=== PATIENT | male | born 1990 | race Hispanic/Latino ===

== ENCOUNTER 2025-01-20 17:07 | Emergency (ER) | payer SELFPAY ==
--- NOTE | 2025-01-20 17:41 | ER ---
Nurse's Notes [facility] Name: Nick Durbin Jr Age: 35 yrs Sex: Male : 1990 Arrival Date: 01/20/2025 Time: 17:07 Bed DX3 Private MD: Diagnosis: Toxic effect of chlorine gas, accidental (unintentional), initial encounter;Headache Presentation: 01/20 17:39 Chief complaint: Patient states: Pt reports sinus headache and pressure after chlorine ss gas exposure this morning around 0900 during a reported leak. Denies LOC, dizziness, N/V. Coronavirus screen: Vaccine status: Patient reports being unvaccinated. Client denies travel out of the [place] in the last 14 days. Ebola Screen: Patient negative for fever greater than or equal to 101.5 degrees Fahrenheit, and additional compatible Ebola Virus Disease symptoms Patient denies exposure to infectious person. Patient denies travel to an Ebola-affected area in the 21 days before illness onset. Initial Sepsis Screen: Does the patient meet any 2 criteria? No. Patient's initial sepsis screen is negative. Does the patient have a suspected source of infection? No. Patient's initial sepsis screen is negative. Risk Assessment: Do you want to hurt yourself or someone else? Patient reports no desire to harm self or others. Onset of symptoms was January 20, 2025 at 09:00. 17:39 Method Of Arrival: Ambulatory ss 17:39 Acuity: MANDIE 4 ss Triage Assessment: 17:40 General: Appears in no apparent distress. comfortable, Behavior is calm, cooperative. ss Pain: Complains of pain in forehead Pain does not radiate. Pain currently is 5 out of 10 on a pain scale. Neuro: No deficits noted. 17:42 Neuro: Reports headache frontal area. GI: Patient currently denies nausea, vomiting. ss Historical: - Allergies: 17:40 No Known Allergies; ss - Home Meds: 17:40 None [Active]; ss - PMHx: 17:40 None; ss - PSHx: 17:40 None; ss - Immunization history:: Adult Immunizations up to date. - Infectious Disease History:: Denies. - Social history:: Smoking status: Patient denies any tobacco usage or history of. Screenin:41 [facility] ED Fall Risk Assessment (Adult) History of falling in the last 3 months, ss including since admission No falls in past 3 months (0 pts) Confusion or Disorientation No (0 pts) Intoxicated or Sedated No (0 pts) Impaired Gait No (0 pts) Mobility Assist Device Used No (0 pt) Altered Elimination No (0 pt) Score/Fall Risk Level 0 - 2 = Low Risk Oriented to surroundings. Abuse screen: Denies threats or abuse. Denies injuries from another. Nutritional screening: No deficits noted. Tuberculosis screening: No symptoms or risk factors identified. Assessment: 17:41 General: see triage assessment. ss Vital Signs: 17:39 Weight 104.33 kg; Height 5 ft. 8 in. ; Pain 5/10; ss 17:44 BP 119 / 75; Pulse 88; Resp 18; Temp 97.7; Pulse Ox 98% on R/A; bc6 17:39 Body Mass Index 34.97 (104.33 kg, 172.72 cm) ss 17:39 Pain Scale: Adult ss ED Course: 17:10 Patient arrived in ED. mr 17:14 Bertrand Thompson DO is Attending Physician. ms3 17:39 Jeevan Villalobos DO is Referral Physician. ms3 17:40 Triage completed. ss 17:40 Arm band placed on right wrist. ss 17:41 Patient has correct armband on for positive identification. Provided Education on: Plan ss of care. 17:41 No provider procedures requiring assistance completed. Patient did not have IV access ss during this emergency room visit. Administered Medications: No medications were administered Medication: 17:41 VIS not applicable for this client. ss Outcome: 17:40 Discharge ordered by . ms3 17:50 Discharged to home ambulatory, ss 17:50 Condition: stable 17:50 Discharge instructions given to patient, Instructed on discharge instructions, follow up and referral plans. medication usage, Demonstrated understanding of instructions, follow-up care, medications, 17:50 Patient left the ED. ss Signatures: Karlee Huber, Stan Reg mr Yana Nicole, RN RN Bertrand Thompson DO DO ms3 Salome Lewis bc6
--- NOTE | 2025-01-20 17:41 | EDPHYS ---
Physician Documentation [facility] Name: Nick Durbin Jr Age: 35 yrs Sex: Male : 1990 Arrival Date: 01/20/2025 Time: 17:07 Bed DX3 Private MD: ED Physician Bertrand Thompson HPI: 01/20 17:36 This 35 yrs old Male presents to ER via Unassigned with complaints of Chemical ms3 Exposure. 17:36 35-year-old male with no past medical history presents emergency department for frontal ms3 headache after being exposed to chlorine while at work. Patient states his discomfort is a 5/10. Patient states he was in a block close to the chlorine gas release. He states he went indoors and sheltered in place during the release however he could smell the chlorine in the building he was in. He denies shortness of breath, nausea, vomiting.. Historical: - Allergies: 17:40 No Known Allergies; ss - Home Meds: 17:40 None [Active]; ss - PMHx: 17:40 None; ss - PSHx: 17:40 None; ss - Immunization history:: Adult Immunizations up to date. - Infectious Disease History:: Denies. - Social history:: Smoking status: Patient denies any tobacco usage or history of. ROS: 17:36 Constitutional: Negative for fever, and chills. Cardiovascular: Negative for chest ms3 pain, and palpitations. Respiratory: Negative for shortness of breath, cough, wheezing, and pleuritic chest pain, Abdomen/GI: Negative for abdominal pain, nausea, vomiting, diarrhea, and constipation, 17:36 Neuro: Positive for headache, Exam: 17:36 Constitutional: This is a well developed, well nourished patient who is awake, alert, ms3 and in no acute distress. Cardiovascular: Regular rate and rhythm with a normal S1 and S2. No gallops, murmurs, or rubs. Normal PMI, no JVD. No pulse deficits. Respiratory: Lungs have equal breath sounds bilaterally, clear to auscultation and percussion. No rales, rhonchi or wheezes noted. No increased work of breathing, no retractions or nasal flaring. Abdomen/GI: Soft, non-tender, with normal bowel sounds. No distension or tympany. No guarding or rebound. No evidence of tenderness throughout. Skin: Warm, dry with normal turgor. Normal color with no rashes, no lesions, and no evidence of cellulitis. MS/ Extremity: Pulses equal, no cyanosis. Neurovascular intact. Full, normal range of motion. Vital Signs: 17:39 Weight 104.33 kg; Height 5 ft. 8 in. ; Pain 5/10; ss 17:44 BP 119 / 75; Pulse 88; Resp 18; Temp 97.7; Pulse Ox 98% on R/A; bc6 17:39 Body Mass Index 34.97 (104.33 kg, 172.72 cm) ss 17:39 Pain Scale: Adult ss MDM: 17:36 Differential Diagnosis Chlorine gas exposure, headache. Data reviewed: vital signs, ms3 nurses notes, and as a result, I will discharge patient. Counseling: I had a detailed discussion with the patient and/or guardian regarding the historical points, exam findings, and any diagnostic results supporting the discharge/admit diagnosis, the need for outpatient follow up, to return to the emergency department if symptoms worsen or persist or if there are any questions or concerns that arise at home. Special discussion: I discussed with the patient/guardian in detail that at this point there is no indication for admission to the hospital. It is understood, however, that if the symptoms persist or worsen the patient needs to return immediately for re-evaluation. ED course: Discussed physical exam findings with patient. Patient to follow-up with primary care physician in 2 to 3 days. Patient understands agrees with plan. All questions were answered. Return precautions discussed include worsening symptoms, or any other concerns.. 17:40 Medical Screening Exam initiated ms3 Administered Medications: No medications were administered Disposition Summary: 01/20/25 17:40 Discharge Ordered Notes: Location: Home ms3 Condition: Stable ms3 Diagnosis - Toxic effect of chlorine gas, accidental (unintentional), initial encounter ms3 - Headache ms3 Followup: ms3 - With: Jeevan Villalobos DO - When: 2 - 3 days - Reason: Recheck today's complaints Discharge Instructions: - Discharge Summary Sheet ms3 - General Headache Without Cause ms3 - Chemical Inhalation Injury, Adult ms3 Forms: - Work release form ss - Medication Reconciliation Form ms3 - Antibiotic Education ms3 - Prescription Opioid Use ms3 - Patient Portal Instructions ms3 - Leadership Thank You Letter ms3 Signatures: Yana Nicole, SUKUMAR RN ss Bertrand Thompson, DO DO ms3
[2025-01-20 18:01] VITALS: BP 119/75; TEMP 97.7; O2SAT 98
--- OUTSIDE RECORDS SUMMARY | 2025-01-20 21:22 | XMS REPORT | Continuity of Care Document ---
Author Name Unknown Address [address] [place] [address] [address] [place] [address] [facility] Address [address] [facility] [address] [place] [address] Care Team Providers Care Financial Controller Name Role Phone Paola Gregory Primary Care Physician [phone] CRISTINO Attending Clinician Unavailable missael Attending Clinician Unavailable Mindy Mahoney Attending Clinician MINDY JOHN Attending Clinician Unavailable CRISTINO Admitting Clinician Unavailable missael Admitting Clinician Unavailable Payers Payer Name Policy Type Policy Number Effective Date Expirati on Date Source [facility] [id number] 2015 00:00:00 Problems Condition Name Condition Details Condition Category Status Onset Date Resolution Date Last Treatment Date Treating Clinician Comments Source No known active problems No known active problems Disease [facility] Allergies, Adverse Reactions, Alerts Allergy Name Allergy Type Status Severity Reaction(s) Onset Date Inactive Date Treating Clinician Comments Source NO KNOWN ALLERGIE S Drug Class Active [facility] Social History Social Habit Start Date Stop Date Quantity Comments Source Sex Assigned At [facility] Exposure to SARS-CoV-2 (event) Not sure [facility] Smoking Status Start Date Stop Date Source Unknown if ever smoked [facility] Medications Ordered Medication Name Filled Medication Name Start Date Stop Date Current Medication? Ordering Clinician Indication Dosage Frequency Signature (SIG) Comments Components Source APPLY TO AFFECTED AREA FACE THREE TIMES A DAY 10-12 00:00: 00 Yes 2 Lázaro Johnson APPLY TO AFFECTED AREA RIGHT ARM THREE TIMES A DAY - 00:00: 00 Yes 1 Lázaro Johnson TAKE 2 TABS DAY 1 AND 1 TAB DAY 2-5 2022-09 00:00: 00 10-15 00:00 :00 No 20 Lázaro Johnson TAKE 1 TABLET TWICE DAILY WITH FOOD. 2022-09 00:00: 00 10-15 00:00 :00 No [id number] Lázaro Johnson methocarbam oL (ROBAXIN) tablet 500 mg 2019-09 23:13: 00 07-03 23:39 :00 No 500mg 500 mg, Oral, ONCE, 1 dose, 07/03/20 at 1815, SRUTHI [facility] ketorolac (TORADOL) injection 30 mg 2019-09 23:13: 07-03 23:39 :00 No 30mg 30 mg, Intramuscu lar, ONCE, 1 dose, 07/03/20 at 1815, SRUTHI
Fa culty member approving Restricted medication : MINDY JOHN [facility] methocarbam oL (ROBAXIN) 500 mg tablet 2019-09 00:00: 00 Yes [id number] 500mg Take 1 tablet by mouth 4 (four) times daily as needed for Pain (scale 4-6). [facility] ibuprofen 800 mg tablet 2019-09 00:00: 00 Yes [id number] 800mg Take 1 tablet by mouth every 8 (eight) hours as needed for Pain (scale 4-6). [facility] Vital Signs Vital Name Observation Time Observation Value Comments S hector Systolic blood pressure 2020-07-03 22:57:00 141 mm[Hg] [facility] Diastolic blood pressure 2020-07-03 22:57:00 93 mm[Hg] [facility] Heart rate 2020-07-03 22:57:00 98 /[facility] Body temperature 2020-07-03 22:57:00 37 Sravanthi [facility] Respiratory rate 2020-07-03 22:57:00 18 /min [facility] Body height 2020-07-03 22:57:00 172.7 cm [facility] Body weight 2020-07-03 22:57:00 117.935 kg [facility] BMI 2020-07-03 22:57:00 39.53 kg/m2 [facility] Oxygen saturation in Arterial blood by Pulse oximetry 2020-07-03 22:57:00 99 /min [facility] BP Systolic 2025-01-02 13:37:00 116 mm[Hg] Step hen F Alex BP Diastolic 2025-01-02 13:37:00 67 mm[Hg] Cortes phen F Alex Weight Measured 2025-01-02 13:37:00 234.00 pounds Lázaro F Alex Height Measured 2025-01-02 13:37:00 69.60 inches Lázaro F Alex Body Temperature 2025-01-02 13:37:00 98.40 degrees Lázaro F Alex Heart Rate 2025-01-02 13:37:00 125.00 /min Step hen F Alex Respiratory Rate 2025-01-02 13:37:00 18.00 /min Lázaro F Aelx Respiratory Rate 2024-11-27 16:59:00 Lázaro F Alex BP Systolic 2024-11-27 16:59:00 109 mm[Hg] Step hen F Alex BP Diastolic 2024-11-27 16:59:00 76 mm[Hg] Cortes phen F Alex Weight Measured 2024-11-27 16:59:00 234.80 pounds Lázaro F Alex Height Measured 2024-11-27 16:59:00 69.60 inches Lázaro F Alex Body Temperature 2024-11-27 16:59:00 98.10 degrees Lázaro F Alex Heart Rate 2024-11-27 16:59:00 80.00 /min Yanci en F Alex BP Systolic 2023-10-12 15:00:00 120 mm[Hg] Step hen F Alex BP Diastolic 2023-10-12 15:00:00 76 mm[Hg] Cortes phen F Alex Weight Measured 2023-10-12 15:00:00 235.00 pounds Lázaro F Alex Height Measured 2023-10-12 15:00:00 69.60 inches Lázaro F Alex Body Temperature 2023-10-12 15:00:00 97.90 degrees Lázaro F Alex Heart Rate 2023-10-12 15:00:00 94.00 /min Yanci en F Alex Respiratory Rate 2023-10-12 15:00:00 16.00 /min Lázaro Johnson BP Systolic 2019-07-22 15:53:00 120 mm[Hg] James Johnson BP Diastolic 2019-07-22 15:53:00 77 mm[Hg] Cortes Johnson Weight Measured 2019-07-22 15:53:00 209.80 pounds Lázaro Johnson Height Measured 2019-07-22 15:53:00 69.60 inches Lázaro Johnson Body Temperature 2019-07-22 15:53:00 98.10 degrees Lázaro Johnson Heart Rate 2019-07-22 15:53:00 91.00 /min Yanci en Dior Johnson Respiratory Rate 2019-07-22 15:53:00 16.00 /min Lázaro Johnson Procedures Procedure Date / Time Performed Performing Clinicia n Source XR LUMBAR SPINE 3 2020-07-03 23:36:34 Bahman John [facility] XR SPINE THORACIC 2 2020-07-03 23:36:34 Mindy John [facility] NOTICE OF PRIVACY PRACTICES 2020-07-03 22:54:20 Doctor Unassigned, [place] [facility] CONSENT/REFUSAL FOR DIAGNOSIS AND TREATMENT 2020-07-03 22:54:06 Doctor Unassigned, [place] [facility] Encounters Start Date/Time End Date/Time Encounter Type Admission Type Attending [facility] Care Department Encounter ID Source 2025-01-02 13:32:27 2025-01-02 13:32:27 Outpatient [facility] [id number] Lázaro Johnson 2025-01-02 00:00:00 2025-01-02 00:00:00 Outpatient Visit [facility] [id number] Lázaro Johnson 2024-12-18 08:17:45 2024-12-18 08:17:45 Outpatient [facility] [id number] Lázaro Johnson 2024-12-12 08:34:37 2024-12-12 08:34:37 Outpatient [facility] [id number] Lázaro Johnson 2024-11-27 16:51:10 2024-11-27 16:51:10 Outpatient [facility] [id number] Lázaro Johnson 2024-11-27 00:00:00 2024-11-27 00:00:00 Outpatient Visit [facility] [id number] Lázaro Johnson 2023-10-12 14:57:14 2023-10-12 14:57:14 Outpatient [facility] [id number] Lázaro Johnson 2022-03-16 03:49:00 2022-03-16 03:49:00 Outpatient AMBREEN_DANA CAPELLAN MIMHIIR [facility] [id number] [facility] 2020-07-21 02:26:00 2020-07-21 02:26:00 Outpatient attema_omega [facility] [id number] [facility] 2020-07-03 18:00:00 2020-07-03 19:20:00 Emergency FredkarlaMindy [facility] [id number] [facility] 2020-07-03 17:54:00 2020-07-03 17:54:00 Emergency X [facility] ERT [id number] [facility] Results Test Description Test Time Test Comments Results Result Co mments Source Lázaro JohnsonT4, [id number] 00:00:00* Test Item Value Reference Range Interpretation Comme nts T4, FREE (test code = 3024-7) 1.0 ng/dL Lázaro JohnsonLIPID [id number] 00:00:00* Test Item Value Reference Range Interpretation Comme nts CHOLESTEROL, TOTAL (test cod e = 2093-3) 129 mg/dL HDL CHOLESTEROL (test code = 2085-9) 53 mg/dL TRIGLYCERIDES (test code = 2571-8) 78 mg/dL LDL-CHOLESTEROL (test code = 63167-7) 60 mg/dL(calc) CHOL/HDLC RATIO (test code = 9830-1) 2.4 (calc) NON HDL CHOLESTEROL (test co de = 51363-6) 76 mg/dL(calc) Lázaro JohnsonCOMPREHENSIVE METABOLIC [id number] 00:00:00* Test Item Value Reference Range Interpretation Comme nts GLUCOSE (test code = 2345-7) 93 mg/dL UREA NITROGEN (BUN) (test code = 3094-0) 17 mg/dL CREATININE (test code = 2160-0) 0.82 mg/dL EGFR (test code = 23427-4) 117 mL/min/1.73m2 BUN/CREATININE RATIO (test code = 3097-3) SEE NOTE: (calc) SODIUM (test code = 2951-2) 138 mmol/L POTASSIUM (test code = 2823-3) 4.6 mmol/L CHLORIDE (test code = 2075-0) 106 mmol/L CARBON DIOXIDE (test code = 2027-9) 26 mmol/L CALCIUM (test code = 48163-9) 9.2 mg/dL PROTEIN, TOTAL (test code = 2885-2) 7.1 g/dL ALBUMIN (test code = 1751-7) 4.3 g/dL GLOBULIN (test code = 30507-8) 2.8 g/dL(calc) ALBUMIN/GLOBULIN RATIO (test code = 1759-0) 1.5 (calc) BILIRUBIN, TOTAL (test code = 1975-2) 0.7 mg/dL ALKALINE PHOSPHATASE (test code = 6768-6) 50 U/L AST (test code = 1920-8) 18 U/L ALT (test code = 1742-6) 21 U/L Lázaro [id number] 00:00:00* Test Item Value Reference Range Interpretation Comme nts TSH (test code = 3016-3) 0.26 mIU/L Lázaro JohnsonTESTOSTERONE, TOTAL, MS [ADDED]2024-12-16 00:00:00* Test Item Value Reference Range Interpretation Comme nts TESTOSTERONE, TOTAL, MS (katy t code = 2986-8) 293 ng/dL Lázaro JohnsonXR SPINE THORACIC 2 [id number] 00:11:14No acute traumatic abnormality. Preliminary Report Dictated by Resident: Anjelica High I, John Birch MD., have reviewed this study and agree with theabove report.EXAM: XR SPINE THORACIC 2 VW, XR LUMBAR SPINE 3 VW HISTORY: mid back pain, s/p lifting heavy weight at gym COMPARISON: None. FINDINGS: THORACIC SPINE: Normal kyphotic curvature of the thoracic spine is noted with mildlevocurvature. The upper thoracic vertebra are obscured on lateralradiograph. The vertebral bodies are normalin height and alignment. Noacute fracture or subluxation is identified. No significant degenerativec hanges. LUMBAR SPINE: There are 5 nonrib-bearing lumbar type segments. Normal lordotic curvatureof the lumbar spine is seen. The vertebral bodies are normal in height andalignment. No acute fracture or subluxation is identified. [facility], Radiant Results Inft User - 07/03/2020 7:12 PM CDTEXAM: XR SPINETHORACIC 2 VW, XR LUMBAR SPINE 3 VWHISTORY: mid back pain, s/p lifting heavy weight at gym COMPARISON: None.FINDINGS:THORACIC SPINE:Normal kyphotic curvature of the thoracic spine is noted with mildlevocurvature. The upper thoracic vertebra are obscured on lateralradiograph. The vertebral bodies are normal in height and alignment. Noacute fracture or subluxation is identified. No significant degen erativechanges.LUMBAR SPINE:There are 5 nonrib-bearing lumbar type segments. Normal lordotic curvatureof the lumbar spine is seen. The vertebral bodies are normal in height andalignment. No acute fracture or subluxation is identified.IMPRESSIONNo acute traumatic abnormality.Preliminary Report Dictated by Resident: John Solano MD., have reviewed this study and agree with theabove report.[facility] [id number] 00:11:14No acute traumatic abnormality. Preliminary Report Dictated by Resident: John Singh MD., have reviewed this study and agree with theabove report.EXAM: XR SPINE THORACIC 2 VW, XR LUMBAR SPINE 3 VW HISTORY: mid back pain, s/p lifting heavy weight at gym COMPARISON: None. FINDINGS: THORACIC SPINE: Normal kyphotic curvature of the thoracic spine is noted with mildlevocurvature. The upper thoracic vertebra are obscured on lateralradiograph. The vertebral bodies are normalin height and alignment. Noacute fracture or subluxation is identified. No significant degenerativechanges. LUMBAR SPINE: There are 5 nonrib-bearing lumbar type segments. Normal lordotic curvatureof the lumbar spine is seen. The vertebral bodies are normal in height andalignment. No acute fracture or subluxation is identified. [facility], Radiant Results Inft User - 07/03/2020 7:12 PM CDTEXAM: XR SPINETHORACIC 2 VW, XR LUMBAR SPINE 3 VWHISTORY: mid back pain, s/p lifting heavy weight at gym COMPARISON: None.FINDINGS:THORACIC SPINE:Normal kyphotic curvature of the thoracic spine is noted with mildlevocurvature. The upper thoracic vertebra are obscured on lateralradiograph. The vertebral bodies are normal in height and alignment. Noacute fracture or subluxation is identified. No significant degenerativechanges.LUMBAR SPINE:There are 5 nonrib-bearing lumbar type segments. Normal lordotic curvatureof the lumbar spine is seen. The vertebral bodies are normal in height andalignment. No acute fracture or subluxation is identified.IMPRESSIONNo acute traumatic abnormality.Preliminary Report Dictated by Resident: Anjelica Chun, John Birch MD., have reviewed this study and agree with theabove report.[facility] Notes Date/Time Note [facility]
== END 2025-01-20 17:50 | disposition home or self-care (01) ==
LOC: ER 17:07
DX: R51.9 Headache, unspecified (principal); T59.4X1A Toxic effect of chlorine gas, accidental (unintentional), initial encounter